=== PATIENT | male | born 1975 | race Caucasian/White ===

== ENCOUNTER → 2017-11-05 | Outpatient (CLI) | payer BC, OTHER ==
[2015-09-25 01:12] VITALS: BP 134/91
--- NOTE | 2017-11-05 15:16 | MG ---
HISTORY: Right breast lump with soreness for 1 year Diagnostic bilateral mammography, targeted right ultrasound Comparison: None FINDINGS: Bilateral CC and MLO projections of the right and left breast were obtained. There is asymmetrically increased fan-shaped retroareolar density of the right breast, suggestive for gynecomastia. No sign ificant architectural distortion, mass or clustered microcalcifications can be observed to suggest ma lignancy. No skin thickening or nipple retraction is appreciated. No pathological lymphadenopathy can be identified. Targeted right breast ultrasound at the region of interest demonstrates no abnormality. IMPRESSION: Findings of right-sided gynecomastia. No evidence for malignancy. ACR CATEGORY: 2 - benign findings Diagnostic CAD was utilized and reviewed. * 0 (ZERO) - ASSESSMENT INCOMPLETE; ADDITIONAL IMAGING IS NEEDED. * 1/1 (ONE) - NEGATIVE. * 2/II (TWO) - BENIGN FINDINGS. * 3/III (THREE) - PROBABLY BENIGN FINDING; SHORT INTERVAL FOLLOW-UP SUGGESTED. * 4/IV (FOUR) - SUSPICIOUS ABNORMALITY; BIOPSY SHOULD BE CONSIDERED. * 5/V - HIGHLY SUSPICIOUS OF MALIGNANCY; BIOPSY SHOULD BE PERFORMED. A NEGATIVE X-RAY REPORT SHOULD NOT DELAY BIOPSY IF A DOMINANT OR CLINICALLY SUSPICIOUS MASS IS PRESENT; 4 TO 8 PERCENT OF CANCERS ARE NOT IDENTIFIED BY X-RAY. A NEGA TIVE REPORT MAY REINFORCE THE CLINICAL IMPRESSION. ADENOSIS AND DENSE BREASTS MAY OBSCURE AN UNDERLY ING NEOPLASM. Reported By:
== END ==
LOC: RAD 14:01
PROVIDERS: ATTEND Nurse Practitioner Family
DX: N63.11 Unspecified lump in the right breast, upper outer quadrant (principal)
CPT/HCPCS: 76642; 77066

== ENCOUNTER 2021-02-05 12:45 | Observation (INO) ==
[2021-02-05] MEDS ORDERED: ZOFRAN INJ 4 MG VIAL IVP ONE (13:41)
[2021-02-05] MEDS ORDERED: NS 1000 ML 1,000 ML IV ONE (13:41)
--- NOTE | 2021-02-05 13:41 | DR.GENAD ---
HPI Time Seen Time Seen by Provider: 02/05/21 13:38 PCP Primary Care Physician: ARLYN Complaint/Symptoms Chief Complaint Doctors Comments: 45 y/o male, ill over the past 2-3 weeks. Started with sore throat, then with N/V. Hasn't rosemary able to eat in a week. + Cough, productive, + dyspnea. Having generalized weakness. Chief Complaint:: PT. C/O WEAKNESS, FEVER, CHILLS, N/V X 3 WEEKS. PT. ALSO C/O COUGH. COVID-19 Coronavirus risk:travel/contact w/high risk person: No Has patient experienced Coronavirus symptoms: Yes Coronavirus symptoms experienced: Fever and Coughing Source History Provided: Patient Mode of Arrival Mode of Arrival: Ambulatory Timing Onset of Chief Complaint: 01/15/21 PMH PMH Past Medical History: Yes Past Medical History: Asthma and Diabetes Past Surgical History: Yes Surgical History: Ortho Surgery Family History History of Family Medical Conditions: Yes Family Medical History: Diabetes Mellitus, Cancer, Coronary Artery Disease and Hypertension Social History Does patient currently use any type of tobacco product: No Have you used tobacco products in the last 12 months: No Type of Tobacco Use: None Does any household member use tobacco: No Alcohol Use: None Do you use any recreational Drugs:: No Lives With: Alone Lives Where: Home Travel Risk Coronavirus risk:travel/contact w/high risk person: No Has patient experienced Coronavirus symptoms: Yes Coronavirus symptoms experienced: Fever and Coughing Infectious screening In the last 2 months have you had wt loss of >10#?: NO Have you had fever, night sweats or hemotysis?: No Have you traveled outside the country in the last 6 months?: No Isolation: Droplet ROS Review of Systems Constitutional: Chills, Fever, Malaise and Weakness Eyes: No Symptoms Reported ENTM: Nose Congestion Respiratoy: Non-Productive Cough and Short of Breath Cardiovascular: No Symptoms Reported Gastrointestinal/Abdominal: Diarrhea Genitourinary: No Symptoms Reported Neurological: Headache and Weakness Musculoskeletal: Muscle Pain Integumentary: No Symptoms Reported Hematologic/Lymphatic: No Symptoms Reported Endocrine: No Symptoms Reported Psychiatric: No Symptoms Reported All Other Systems: Reviewed and Negative PE Vital Signs Vitals: Temperature 97.9 F Pulse Rate 113 Respiratory Rate 22 Blood Pressure 137/78 O2 Sat by Pulse Oximetry 95 General Limitations: No Limitations General Appearance: Alert, In No Apparent Distress and Other (+ frequent dry cough) Head Head Exam: Normal Inspection Eyes Eye exam: Normal Appearance ENT ENT Exam: Normal Exam TM/Canal Exam: Bilateral: Normal Nose Exam: Other (+ clear nasal congestion) Neck Neck Exam: Normal Inspection and Full ROM Chest Chest Inspection: Normal Inspection Respiratory Respiratory Exam: Respiratory Distress (mild, tachypnea) Respiratory Exam: Bilateral: Rales Cardiovascular Cardiovascular Exam: Regular Rate, Normal Rhythm and Normal Heart Sounds Abdominal Exam Abdominal Exam: Normal Inspection and Tenderness Extremities Extremities Exam: Normal Inspection and Full ROM Back Back Exam: Normal Inspection Neurologic Neurological Exam: Alert, Oriented X3 and CN II-XII Intact; negative Motor Sensory Deficit Psychiatric Psychiatric Exam: Normal Affect Skin Skin Exam: Warm and Dry MDM Differential Diagnosis Differential Diagnosis: Covid, pneumonia, flu COURSE Treatment Treatment: Pt ill wiht flu-like illness. Not vaccinated for covid. W/u initiated. Reevaluation 1st: Improved (on O2. Is covid +. CXR with bilateral infiiltrates, Labs overall acceptable. Pt ambulated on RA, drops to 88%. ) 2nd: Unchanged (Resting on O2. Discussed with Dr. Dey. Pt declines REGEN-COV. Will admit for O2, steroid therapy.) ROR Labs Reviewed Laboratory Results Reviewed?: Yes Result Diagrams: 02/05/21 14:57 02/05/21 14:57 Laboratory: WBC 5.7 X10^3/uL (3.6-10.0) 02/05/21 14:57 RBC 4.83 X10^6/uL (4.7-6.0) 02/05/21 14:57 Hgb 14.4 g/dL (13.5-18.0) 02/05/21 14:57 Hct 41.6 % (42.0-54.0) L 02/05/21 14:57 MCV 86.1 fL (80.0-100.0) 02/05/21 14:57 MCH 29.8 pg (27.0-34.0) 02/05/21 14:57 MCHC 34.7 g/dL (33.0-35.0) 02/05/21 14:57 RDW 12.6 % (11.6-16.5) 02/05/21 14:57 Plt Count 332 X10^3/uL (150.0-450.0) 02/05/21 14:57 MPV 8.1 fL (7.4-11.0) 02/05/21 14:57 Neut % (Auto) 62.9 % (42.0-75.0) 02/05/21 14:57 Lymph % (Auto) 23.4 % (21.0-51.0) 02/05/21 14:57 [place] % (Auto) 10.6 % (0.0-13.0) 02/05/21 14:57 Eos % (Auto) 2.5 % (0.9-2.9) 02/05/21 14:57 Baso % (Auto) 0.6 % (0.2-1.0) 02/05/21 14:57 Neut # (Auto) 3.6 x10^3/uL (2.2-4.8) 02/05/21 14:57 Lymph # (Auto) 1.3 X10^3/uL (1.3-2.9) 02/05/21 14:57 [place] # (Auto) 0.6 x10^3/uL (0.3-0.8) 02/05/21 14:57 Eos # (Auto) 0.1 x10^3/uL (0.0-0.2) 02/05/21 14:57 Baso # (Auto) 0.0 X10^3/uL (0.0-0.1) 02/05/21 14:57 Absolute Nucleated RBC 0.1 /100WBC 02/05/21 14:57 Sodium 141 mmol/L (136-145) 02/05/21 14:57 Corrected Sodium TNP 02/05/21 14:57 Potassium 4.1 mmol/L (3.5-5.1) 02/05/21 14:57 Chloride 104 mmol/L (98-107) 02/05/21 14:57 Carbon Dioxide 31.0 mmol/L (21-32) 02/05/21 14:57 BUN 11 mg/dL (7-18) 02/05/21 14:57 Creatinine 0.63 mg/dL (0.70-1.30) L 02/05/21 14:57 Est GFR (MDRD) Af Amer > 60 (>60) 02/05/21 14:57 Est GFR (MDRD) Non-Af > 60 (>60) 02/05/21 14:57 Glucose 101 mg/dL (65-99) H 02/05/21 14:57 Calcium 8.2 mg/dL (8.5-10.1) L 02/05/21 14:57 Corrected Calcium 9.2 mg/dL (8.5-10.1) 02/05/21 14:57 Total Bilirubin 0.80 mg/dL (0.2-1.0) 02/05/21 14:57 AST 36 Units/L (15-37) 02/05/21 14:57 ALT 57 Units/L (12-78) 02/05/21 14:57 Alkaline Phosphatase 58 Units/L (46-116) 02/05/21 14:57 Creatine Kinase 111 Units/L (39-308) 02/05/21 14:57 CK-MB (CK-2) < 1.0 ng/mL (0-4.0) 02/05/21 14:57 CK/CKMB % Calc 0.9 % (<4) 02/05/21 14:57 Troponin I < 0.02 ng/mL (0-1.5) 02/05/21 14:57 C-Reactive Protein 70.30 mg/L (0-3.0) H 02/05/21 14:57 Total Protein 7.5 g/dL (6.4-8.2) 02/05/21 14:57 Albumin 2.7 g/dL (3.4-5.0) L 02/05/21 14:57 Globulin 4.8 g/dL (2.5-4.5) H 02/05/21 14:57 Albumin/Globulin Ratio 0.6 Ratio (1.1-2.1) L 02/05/21 14:57 Lipase 135 Units/L (73-393) 02/05/21 14:57 SARS-CoV-2 (PCR) Positive (NEGATIVE) A 02/05/21 13:40 Influenza Type A (PCR) Negative (NEGATIVE) 02/05/21 13:40 Influenza Type B (PCR) Negative (NEGATIVE) 02/05/21 13:40 RSV (PCR) Negative (NEGATIVE) 02/05/21 13:40 Other Results Comments: Covid + XRAY XRAY Interpreted by: Radiologist X-ray Results: Developing bilateral infiltrates. EKG Rate: 100 [place]: Normal Rhythm: ST Block: None ST: Normal Opioid Opioid Risk Tool Age (Art box if 16-45): No History of Preadolescent Sexual Abuse: No Total: 0 Total Score Risk Category: Low Risk Copyright: Steven BRADY predicting aberrant behaviors Diagnosis Discharge Problem: COVID-19, Hypoxia Instructions Forms: EUA Consent
[2021-02-05] MEDS ORDERED: NS 1000 ML 1,000 ML ONE (13:45)
[2021-02-05] MEDS ORDERED: ZOFRAN INJ 4 MG VIAL ONE (13:45)
--- NOTE | 2021-02-05 14:00 | RAD ---
HISTORYDIFF BREATHING SPINE, ORTHO, DMExam: Single portable view of the chest.Comparison: Chest radiograph dated February 05, 2021.Findings:The trachea is midline. The cardiac silhouette is mildly enlarged. There are multifocal, abnormal, enlarged a peripheral ground-glass and airspace opacities seen throughout the lung gardiner, especially in the mid and lower lung gardiner. Diffuse central and lower lobe interstitial densities are also observed. Overall, these findings would be compatible with an active COVID-19 infection/pneumonia. No pneumothorax or other cardiopulmonary abnormalities are seen. The bony thorax is grossly intact/unremarkable on this exam.Impression:Imaging findings most compatible with an active COVID-19 infection/pneumonia.Electronically signed by: MARLEE CAPUTO III (Feb 05, 2021 13:59:34)
[2021-02-05 15:19] LABS: BASOPHILS % (AUTO) 0.6 % (0.2-1.0); EOSINOPHILS # (AUTO) 0.1 x10^3/uL (0.0-0.2); EOSINOPHILS % (AUTO) 2.5 % (0.9-2.9); HEMATOCRIT 41.6 % (42.0-54.0); HEMOGLOBIN 14.4 g/dL (13.5-18.0); LYMPHOCYTES # (AUTO) 1.3 X10^3/uL (1.3-2.9); LYMPHOCYTES % (AUTO) 23.4 % (21.0-51.0); MEAN CORPUSCULAR HEMOGLOBIN 29.8 pg (27.0-34.0); MEAN CORPUSCULAR HGB CONC 34.7 g/dL (33.0-35.0); MEAN CORPUSCULAR VOLUME 86.1 fL (80.0-100.0); MEAN PLATELET VOLUME 8.1 fL (7.4-11.0); MONOCYTES # (AUTO) 0.6 x10^3/uL (0.3-0.8); MONOCYTES % (AUTO) 10.6 % (0.0-13.0); NEUTROPHILS # (AUTO) 3.6 x10^3/uL (2.2-4.8); NEUTROPHILS % (AUTO) 62.9 % (42.0-75.0); PLATELET COUNT 332 X10^3/uL (150.0-450.0); RED BLOOD COUNT 4.83 X10^6/uL (4.7-6.0); RED CELL DISTRIBUTION WIDTH 12.6 % (11.6-16.5); WHITE BLOOD COUNT 5.7 X10^3/uL (3.6-10.0)
[2021-02-05 16:13] LABS: ALANINE AMINOTRANSFERASE 57 Units/L (12-78); ALBUMIN 2.7 g/dL (3.4-5.0); ALKALINE PHOSPHATASE 58 Units/L (46-116); ASPARTATE AMINO TRANSFERASE 36 Units/L (15-37); BLOOD UREA NITROGEN 11 mg/dL (7-18); CALCIUM 8.2 mg/dL (8.5-10.1); CHLORIDE 104 mmol/L (98-107); CKMB % 0.9 % (<4); COR CA(FOR HYPOALB) 9.2 mg/dL (8.5-10.1); CREATINE KINASE 111 Units/L (39-308); CREATINE KINASE MB < 1.0 ng/mL (0-4.0); CREATININE 0.63 mg/dL (0.70-1.30); LIPASE 135 Units/L (73-393); SODIUM 141 mmol/L (136-145); TOTAL PROTEIN 7.5 g/dL (6.4-8.2); TROPONIN I < 0.02 ng/mL (0-1.5); eGFR NON BLACK RACES > 60 (>60)
[2021-02-05 17:45] VITALS: BMI 34.0
[2021-02-05] MEDS: NS 1000 ML 1,000 ML IV SCH (18:25)
[2021-02-05] MEDS: PHARMACY CONSULT - IVERMECTIN XX SCH (18:35)
[2021-02-05] MEDS ORDERED: THIAMINE HCL INJ ONE (19:42)
[2021-02-05] MEDS ORDERED: ZINC SULFATE ONE (19:42)
[2021-02-05] MEDS ORDERED: PERIACTIN TAB 4 MG PO ONE (19:43)
[2021-02-05] MEDS ORDERED: SOLU-Medrol 40 MG VIAL ONE (19:43)
[2021-02-05] MEDS ORDERED: PEPCID TAB 40 MG ONE (19:43)
[2021-02-05] MEDS ORDERED: VIBRAMYCIN PO ONE (19:43)
[2021-02-05] MEDS ORDERED: IVERMECTIN ONE (19:43)
[2021-02-05] MEDS ORDERED: NS 100 ML IV 100 ML ONE (19:44)
[2021-02-05] MEDS ORDERED: ASCORBIC ACID INJ MULTI-DOSE VIAL IV ONE (19:44)
[2021-02-05] MEDS ORDERED: LOVENOX INJ 30 MG SYR SC ONE (19:44)
[2021-02-05] MEDS: PEPCID TAB 40 MG PO SCH (20:10)
[2021-02-05] MEDS: IVERMECTIN PO SCH (20:11)
[2021-02-05] MEDS: ASCORBIC ACID INJ MULTI-DOSE VIAL 1,500 MG in NS 100 ML IV 100 ML IV SCH (20:11)
[2021-02-05] MEDS: ZINC SULFATE PO SCH (20:11)
[2021-02-05] MEDS: MELATONIN PO SCH (20:12)
[2021-02-05] MEDS: VIBRAMYCIN PO SCH (20:12)
[2021-02-05] MEDS: THIAMINE HCL INJ IVP SCH (20:12)
[2021-02-05] MEDS: SOLU-Medrol 40 MG VIAL IVP SCH (20:12)
[2021-02-05 20:33] LABS: BILIRUBIN,URINE NEGATIVE (NEGATIVE); BLOOD/HEMOGLOBIN,URINE 1+ (NEGATIVE); GLUCOSE, URINE NEGATIVE (NEGATIVE); KETONES,URINE NEGATIVE (NEGATIVE); LEUKOCYTE ESTERASE ,URINE NEGATIVE (NEGATIVE); NITRITES,URINE NEGATIVE (NEGATIVE); PROTEIN,URINE 2+ (NEGATIVE); UROBILINOGEN,URINE 3+ (NORMAL)
[2021-02-05 20:34] LABS: APPEARANCE,URINE HAZY (CLEAR); COLOR,URINE DARK YELLOW (YELLOW)
[2021-02-05 20:44] LABS: AMORPHOUS SEDIMENT,UR TRACE /HPF (NEGATIVE); BACTERIA,URINE TRACE /HPF (NEGATIVE); MUCUS,URINE FEW /HPF (NEGATIVE); SQUAMOUS EPITHELIAL CELL,UR FEW /HPF (NEGATIVE); TRANSITIONAL EPI CELLS,URINE RARE /HPF (NEGATIVE)
[2021-02-05] MEDS: BROVANA IN SCH (20:58)
[2021-02-05] MEDS ORDERED: LOVENOX INJ 30 MG SYR SC SCH (21:00)
[2021-02-05] MEDS: PULMICORT NEB TX 0.5 MG NEB SCH (21:08)
[2021-02-05] MEDS: PERIACTIN TAB 4 MG PO SCH (21:50)
[2021-02-06] MEDS: ASCORBIC ACID INJ MULTI-DOSE VIAL 1,500 MG in NS 100 ML IV 100 ML IV SCH ×4 (03:00→20:31)
[2021-02-06] MEDS: SOLU-Medrol 40 MG VIAL IVP SCH ×4 (03:13→20:32)
[2021-02-06 05:28] LABS: BASOPHILS % (AUTO) 0.5 % (0.2-1.0); EOSINOPHILS % (AUTO) 0.3 % (0.9-2.9); HEMATOCRIT 39.2 % (42.0-54.0); HEMOGLOBIN 13.8 g/dL (13.5-18.0); LYMPHOCYTES # (AUTO) 0.5 X10^3/uL (1.3-2.9); LYMPHOCYTES % (AUTO) 20.8 % (21.0-51.0); MEAN CORPUSCULAR HEMOGLOBIN 31.6 pg (27.0-34.0); MEAN CORPUSCULAR HGB CONC 35.3 g/dL (33.0-35.0); MEAN CORPUSCULAR VOLUME 89.4 fL (80.0-100.0); MEAN PLATELET VOLUME 8.9 fL (7.4-11.0); MONOCYTES # (AUTO) 0.1 x10^3/uL (0.3-0.8); MONOCYTES % (AUTO) 3.6 % (0.0-13.0); NEUTROPHILS # (AUTO) 1.9 x10^3/uL (2.2-4.8); NEUTROPHILS % (AUTO) 74.8 % (42.0-75.0); PLATELET COUNT 328 X10^3/uL (150.0-450.0); RED BLOOD COUNT 4.38 X10^6/uL (4.7-6.0); RED CELL DISTRIBUTION WIDTH 12.5 % (11.6-16.5); WHITE BLOOD COUNT 2.5 X10^3/uL (3.6-10.0)
[2021-02-06 05:34] LABS: ALANINE AMINOTRANSFERASE 55 Units/L (12-78); ALBUMIN 2.7 g/dL (3.4-5.0); ALKALINE PHOSPHATASE 57 Units/L (46-116); ASPARTATE AMINO TRANSFERASE 30 Units/L (15-37); BLOOD UREA NITROGEN 12 mg/dL (7-18); CALCIUM 8.4 mg/dL (8.5-10.1); CARBON DIOXIDE 32.6 mmol/L (21-32); CHLORIDE 105 mmol/L (98-107); COR CA(FOR HYPOALB) 9.4 mg/dL (8.5-10.1); COR NA(FOR HYPERGLY) 144 mmol/L (136-145); CREATININE 0.66 mg/dL (0.70-1.30); SODIUM 142 mmol/L (136-145); TOTAL PROTEIN 7.4 g/dL (6.4-8.2); TROPONIN I < 0.02 ng/mL (0-1.5); eGFR NON BLACK RACES > 60 (>60)
[2021-02-06] MEDS: PERIACTIN TAB 4 MG PO SCH ×3 (05:40→21:33)
[2021-02-06] MEDS: ACTOS PO SCH (08:48)
[2021-02-06] MEDS: ZINC SULFATE PO SCH ×2 (08:48→20:28)
[2021-02-06] MEDS: THIAMINE HCL INJ IVP SCH ×2 (08:48→20:28)
[2021-02-06] MEDS: VIBRAMYCIN PO SCH ×2 (08:49→20:29)
[2021-02-06] MEDS: PEPCID TAB 40 MG PO SCH ×2 (08:49→20:29)
[2021-02-06] MEDS: LIPITOR TAB 80 MG PO SCH (08:49)
[2021-02-06] MEDS: GLUCOPHAGE XR 24-HR PO SCH ×2 (08:49→20:29)
[2021-02-06] MEDS: LOVENOX INJ 60 MG SYR SC SCH ×2 (08:49→20:33)
[2021-02-06] MEDS ORDERED: VITAMIN A PO SCH (09:00)
[2021-02-06] MEDS ORDERED: VITAMIN D (1.25MG) PO SCH (09:00)
[2021-02-06] MEDS: BROVANA IN SCH ×2 (09:11→20:31)
[2021-02-06] MEDS: PULMICORT NEB TX 0.5 MG NEB SCH ×2 (09:14→20:36)
[2021-02-06] MEDS: PHARMACY CONSULT - IVERMECTIN XX SCH (17:46)
[2021-02-06] MEDS: NS 1000 ML 1,000 ML IV SCH (17:46)
[2021-02-06] MEDS: MELATONIN PO SCH (20:32)
[2021-02-06] MEDS: IVERMECTIN PO SCH (20:34)
[2021-02-07] MEDS: SOLU-Medrol 40 MG VIAL IVP SCH (03:34)
[2021-02-07] MEDS: ASCORBIC ACID INJ MULTI-DOSE VIAL 1,500 MG in NS 100 ML IV 100 ML IV SCH ×2 (03:34→09:40)
[2021-02-07 05:24] LABS: BASOPHILS % (AUTO) 0.4 % (0.2-1.0); EOSINOPHILS % (AUTO) 0.3 % (0.9-2.9); HEMATOCRIT 37.4 % (42.0-54.0); HEMOGLOBIN 12.8 g/dL (13.5-18.0); LYMPHOCYTES # (AUTO) 1.2 X10^3/uL (1.3-2.9); LYMPHOCYTES % (AUTO) 13.2 % (21.0-51.0); MEAN CORPUSCULAR HEMOGLOBIN 30.1 pg (27.0-34.0); MEAN CORPUSCULAR HGB CONC 34.1 g/dL (33.0-35.0); MEAN CORPUSCULAR VOLUME 88.3 fL (80.0-100.0); MEAN PLATELET VOLUME 8.4 fL (7.4-11.0); MONOCYTES # (AUTO) 0.4 x10^3/uL (0.3-0.8); MONOCYTES % (AUTO) 4.3 % (0.0-13.0); NEUTROPHILS # (AUTO) 7.5 x10^3/uL (2.2-4.8); NEUTROPHILS % (AUTO) 81.8 % (42.0-75.0); PLATELET COUNT 376 X10^3/uL (150.0-450.0); RED BLOOD COUNT 4.23 X10^6/uL (4.7-6.0); RED CELL DISTRIBUTION WIDTH 12.5 % (11.6-16.5); WHITE BLOOD COUNT 9.2 X10^3/uL (3.6-10.0)
[2021-02-07] MEDS: PERIACTIN TAB 4 MG PO SCH (05:34)
[2021-02-07 05:59] LABS: ALANINE AMINOTRANSFERASE 42 Units/L (12-78); ALBUMIN 2.5 g/dL (3.4-5.0); ALKALINE PHOSPHATASE 50 Units/L (46-116); ASPARTATE AMINO TRANSFERASE 19 Units/L (15-37); BLOOD UREA NITROGEN 14 mg/dL (7-18); CALCIUM 8.2 mg/dL (8.5-10.1); CARBON DIOXIDE 28.5 mmol/L (21-32); CHLORIDE 107 mmol/L (98-107); COR CA(FOR HYPOALB) 9.4 mg/dL (8.5-10.1); COR NA(FOR HYPERGLY) 145 mmol/L (136-145); CREATININE 0.67 mg/dL (0.70-1.30); SODIUM 144 mmol/L (136-145); TOTAL PROTEIN 6.7 g/dL (6.4-8.2); eGFR NON BLACK RACES > 60 (>60)
[2021-02-07 08:14] VITALS: BP 121/70
[2021-02-07] MEDS ORDERED: NS 100 ML IV 100 ML ONE (08:27)
[2021-02-07] MEDS: ACTOS PO SCH (08:55)
[2021-02-07] MEDS: VIBRAMYCIN PO SCH (08:56)
[2021-02-07] MEDS: THIAMINE HCL INJ IVP SCH (08:56)
[2021-02-07] MEDS: PEPCID TAB 40 MG PO SCH (08:56)
[2021-02-07] MEDS: GLUCOPHAGE XR 24-HR PO SCH (08:56)
[2021-02-07] MEDS: LIPITOR TAB 80 MG PO SCH (08:57)
[2021-02-07] MEDS: LOVENOX INJ 60 MG SYR SC SCH (08:57)
[2021-02-07] MEDS: ZINC SULFATE PO SCH (08:57)
[2021-02-07] MEDS ORDERED: VITAMIN D3 125 mcg (5,000 UNITS) PO SCH (09:00)
[2021-02-07] MEDS ORDERED: VITAMIN A PO SCH (09:00)
[2021-02-07] MEDS ORDERED: DECADRON TAB PO SCH (09:00)
[2021-02-07] MEDS: BROVANA IN SCH (10:00)
[2021-02-07] MEDS: PULMICORT NEB TX 0.5 MG NEB SCH (10:00)
== END 2021-02-07 10:50 | disposition home or self-care (01) ==
LOC: ER 12:45 → ICU 12:45
PROVIDERS: ADMIT Obstetrics & Gynecology Obstetrics; ATTEND Obstetrics & Gynecology Obstetrics
DX: R06.02 Shortness of breath; J12.82 Pneumonia due to coronavirus disease 2019; J44.9 Chronic obstructive pulmonary disease, unspecified; U07.1 COVID-19; E11.65 Type 2 diabetes mellitus with hyperglycemia